=== PATIENT | female | born 1990 ===

== ENCOUNTER 2017-12-05 14:45 | Observation (INO) ==
[2017-12-05] MEDS ORDERED: HYDROmorphone 2 MG/1 ML VIAL IV PRN (15:51)
[2017-12-05] MEDS ORDERED: ONDANSETRON 4 MG/2 ML VIAL IV PRN (15:51)
[2017-12-05] MEDS ORDERED: HYDROmorphone 2 MG/1 ML VIAL IV STA (15:59)
[2017-12-05] MEDS ORDERED: ONDANSETRON 4 MG/2 ML VIAL IV STA (15:59)
[2017-12-05] MEDS: DEXTROSE 5% NACL 0.45% 1,000 ML IV SCH (17:19)
[2017-12-05] MEDS: PIPERACILLIN/TAZOBACTAM 3,375 MG in SODIUM CHLORIDE 0.9% 100 ML IV SCH (17:20)
[2017-12-06] MEDS: PIPERACILLIN/TAZOBACTAM 3,375 MG in SODIUM CHLORIDE 0.9% 100 ML IV SCH ×3 (00:12→16:23)
[2017-12-06] MEDS: DEXTROSE 5% NACL 0.45% 1,000 ML IV SCH ×3 (00:13→16:22)
[2017-12-06] MEDS: PANTOPRAZOLE 40 MG VIAL IV SCH (08:03)
[2017-12-06] MEDS ORDERED: LIDOCAINE 1%/EPI INJ 20 ML VIAL ONE (16:59)
[2017-12-06] MEDS ORDERED: BUPIVACAINE MPF 0.25% /EPI 30 ML VIAL ONE (16:59)
[2017-12-06] MEDS ORDERED: TISSUE ADHESIVE 1 EACH APPLICATOR TOP ONE (17:00)
[2017-12-06] MEDS ORDERED: PROPOFOL 200 MG/20 ML VIAL IV ONE (19:30)
[2017-12-06] MEDS ORDERED: SEVOFLURANE 1 UNIT/15 MINUTE INH ONE (19:30)
[2017-12-06] MEDS ORDERED: ONDANSETRON 4 MG/2 ML VIAL ONE (19:30)
[2017-12-06] MEDS ORDERED: DEXAMETHASONE 10 MG/1 ML VIAL ONE (19:30)
[2017-12-06] MEDS ORDERED: fentaNYL 100 MCG/2 ML VIAL ONE (19:30)
[2017-12-06] MEDS ORDERED: MIDAZOLAM 2 MG/2 ML VIAL ONE (19:30)
[2017-12-06] MEDS ORDERED: KETOROLAC 30 MG/1 ML VIAL ONE (19:31)
[2017-12-06] MEDS ORDERED: NEOSTIGMINE 10 MG/10 ML VIAL ONE (19:31)
[2017-12-06] MEDS ORDERED: GLYCOPYRROLATE 0.4 MG/2 ML VIAL ONE (19:31)
[2017-12-06] MEDS ORDERED: ROCURONIUM 100 MG/10 ML VIAL IV ONE (19:31)
[2017-12-07] MEDS: PIPERACILLIN/TAZOBACTAM 3,375 MG in SODIUM CHLORIDE 0.9% 100 ML IV SCH ×2 (00:48→08:48)
[2017-12-07] MEDS: DEXTROSE 5% NACL 0.45% 1,000 ML IV SCH ×2 (03:43→07:20)
[2017-12-07 05:05] LABS: Basophils % 0.1 % (0.0-0.8); Hematocrit 35.1 VOL% (35.7-47.0); Hemoglobin 11.8 GM/DL (12.0-16.0); Immature Granulocytes % 0.4 %; Immature Granulocytes Absolute 0.04 #; Lymphocytes # 0.6 10*3/uL (1.4-4.0); Lymphocytes % 6.8 % (21.3-54.2); Mean Corpuscular HGB Conc 33.6 GM/DL (32-36); Mean Corpuscular Hemoglobin 31 PG (27-34); Mean Corpuscular Volume 92.4 FL (87-102); Mean Platelet Volume 9.9 FL (9.6-12.0); Monocytes # 0.2 10*3/uL (0.11-0.8); Monocytes % 2.2 % (1.7-12.7); Neutrophils # 8.5 10*3/uL (1.4-7.4); Neutrophils % 90.5 % (38.7-73.9); Platelet Count 242 T/CUMM (130-400); Red Cell Distribution Width 12.3 % (9.3-17.3); White Blood Count 9.4 T/CUMM (4-12)
[2017-12-07 05:28] LABS: Albumin 3.2 G/DL (3.4-5.0); Bilirubin,Total 1.2 MG/DL (0.2-1.0); Calcium 8.3 MG/DL (8.5-10.1); Osmolality,Calculated 277.5 MOS/KG (273-304); Potassium 4.1 MMOL/L (3.5-5.1); Total Protein 6.3 G/DL (6.4-8.3)
[2017-12-07] MEDS: PANTOPRAZOLE 40 MG VIAL IV SCH (08:46)
[2017-12-07 12:19] VITALS: BP 116/70
== END 2017-12-07 13:00 | disposition home or self-care (01) ==
LOC: EDBD → EDUNIT# → N.EDINP 14:45 → N.ED 14:45 → N.3E 16:29
PROVIDERS: ADMIT Surgery; ATTEND Surgery
PROC: LAPCHOL (2017-12-06 16:50)

== ENCOUNTER 2018-11-12 22:11 | Observation (INO) ==
[2018-11-13] MEDS ORDERED: ONDANSETRON 4 MG/2 ML VIAL IV PRN (01:30)
[2018-11-13] MEDS ORDERED: LORazepam 2 MG/1 ML VIAL IV PRN (01:30)
[2018-11-13] MEDS ORDERED: ACETAMINOPHEN 325 MG TABLET PO PRN (01:30)
[2018-11-13] MEDS ORDERED: NICOTINE 21 MG/24 HR PATCH TRANSDERM PRN (01:30)
[2018-11-13 02:59] LABS: Basophils % 0.3 % (0.0-0.8); Eosinophils % 0.3 % (0.00-10.9); Hematocrit 29.8 VOL% (35.7-47.0); Hemoglobin 10.4 GM/DL (12.0-16.0); Immature Granulocytes % 0.3 %; Immature Granulocytes Absolute 0.02 #; Lymphocytes # 1.2 10*3/uL (1.4-4.0); Lymphocytes % 17.2 % (21.3-54.2); Mean Corpuscular HGB Conc 34.9 GM/DL (32-36); Mean Corpuscular Volume 92.8 FL (87-102); Mean Platelet Volume 10.3 FL (9.6-12.0); Monocytes % 7.3 % (1.7-12.7); Neutrophils % 74.6 % (38.7-73.9); Platelet Count 144 T/CUMM (130-400); Red Blood Count 3.21 MC/CUMM (3.8-5.5); Red Cell Distribution Width 12.4 % (9.3-17.3); White Blood Count 7.2 T/CUMM (4-12)
[2018-11-13 03:30] LABS: Albumin 3.2 G/DL (3.4-5.0); Bilirubin,Total 1.9 MG/DL (0.2-1.0); Calcium 8.2 MG/DL (8.5-10.1); Osmolality,Calculated 267.1 MOS/KG (273-304); Thyroid Stimulating Hormone 0.608 uIU/ml (0.358-3.74); Total Protein 6.2 G/DL (6.4-8.3)
[2018-11-13 03:36] LABS: Albumin 3.3 G/DL (3.4-5.0); Bilirubin,Direct 0.59 MG/DL (0.0-0.20); Bilirubin,Indirect 1.1 MG/DL (0.0-1.0); Bilirubin,Total 1.7 MG/DL (0.2-1.0); Total Protein 6.3 G/DL (6.4-8.3)
[2018-11-13 04:27] LABS: Hepatitis B Surface Ag Quant 0.18 Index; Hepatitis B Surface Ag Result Negative (Negative); Hepatitis C Virus Ab Quant 0.03 Index; Hepatitis C Virus Ab Result Negative (Negative)
[2018-11-13 11:22] LABS: Apearance,Urine CLEAR (Clear); Bilirubin,Urine Negative (Negative); Blood, Urine Small mg/dL (Negative); Glucose,Urine (UA) Negative (Negative); Ketones,Urine 5 mg/dL (Negative); Nitrite,Urine Negative (Negative); Protein,Urine Negative; RBC,Urine 2 /HPF (0-4); Urine Color Yellow (Yellow); Urine Specific Gravity 1.005 (1.001-1.035)
[2018-11-13 11:31] LABS: Barbiturates Screen,Urine Negative (Negative); Benzodiazepines Screen,Urine Negative (Negative); Cannabinoid Screen,Urine Positive (Negative); Opiate Screen,Urine Negative (Negative); Phencyclidine Screen,Urine Negative (Negative)
[2018-11-13] MEDS: SODIUM CHLORIDE 0.9% 1,000 ML IV SCH (18:00)
[2018-11-14] MEDS: SODIUM CHLORIDE 0.9% 1,000 ML IV SCH (05:49)
[2018-11-14 06:06] LABS: Basophils % 0.2 % (0.0-0.8); Eosinophils # 0.1 10*3/uL (0.0-0.87); Eosinophils % 1.3 % (0.00-10.9); Hemoglobin 9.8 GM/DL (12.0-16.0); Immature Granulocytes % 0.4 %; Immature Granulocytes Absolute 0.02 #; Lymphocytes # 1.4 10*3/uL (1.4-4.0); Lymphocytes % 26.1 % (21.3-54.2); Mean Corpuscular HGB Conc 33.8 GM/DL (32-36); Mean Corpuscular Volume 94.5 FL (87-102); Mean Platelet Volume 10.6 FL (9.6-12.0); Monocytes % 10.1 % (1.7-12.7); Neutrophils % 61.9 % (38.7-73.9); Platelet Count 127 T/CUMM (130-400); Red Blood Count 3.07 MC/CUMM (3.8-5.5); Red Cell Distribution Width 12.6 % (9.3-17.3); White Blood Count 5.3 T/CUMM (4-12)
[2018-11-14 06:25] LABS: Albumin 2.9 G/DL (3.4-5.0); Bilirubin,Direct 0.26 MG/DL (0.0-0.20); Bilirubin,Indirect 0.9 MG/DL (0.0-1.0); Bilirubin,Total 0.7 MG/DL (0.2-1.0); Bilirubin,Total 1.2 MG/DL (0.2-1.0); Calcium 8.1 MG/DL (8.5-10.1); Total Protein 5.8 G/DL (6.4-8.3); Total Protein 5.9 G/DL (6.4-8.3)
[2018-11-14 06:25] LABS: Risk Ratio 1.86; VLDL CHOLESTEROL 14.6 MG/DL
[2018-11-14 08:29] VITALS: BP 128/83
== END 2018-11-14 14:30 | disposition home or self-care (01) ==
LOC: N.4E 23:48 → SUATTDRO 23:48 → INTOOBSV 23:48
PROVIDERS: ADMIT Internal Medicine; ATTEND Internal Medicine